=== PATIENT | male | born 2005 | race Caucasian/White ===

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

== ENCOUNTER 2024-08-29 17:21 | Emergency (ER) | payer BC ==
--- NOTE | 2024-08-29 18:10 | ED ---
Animal Bite HPI - General Chief Complaint: Animal Bite Stated Complaint: dog bites all over body Time Seen by Provider: 08/29/24 17:46 Source: patient, RN notes reviewed Mode of arrival: ambulatory Limitations: no limitations - History of Present Illness Initial Comments: This is a 18-year-old male with no significant medical history presenting to emergency department chief complaint of a animal attack. States that he was outside running approximately 2 miles from his friend's house when he was attacked by approximately 4-5 dogs resulting in multiple scratches and bites over his neck, bilateral upper and lower extremities and buttocks. Last tetanus vaccination within the last 5 years. No other acute complaints at this time. MD Complaint: animal bite, animal-related injury Location: face, neck, chest, buttocks Left: Arm, Forearm, Hand, Thigh, Leg, Right: Arm, Forearm, Hand, Thigh, Leg Animal: dog Description: immunizations unknown Mechanism: bite, scratch Context: unprovoked - Related Data Patient Tetanus UTD: Yes Previous Rx's Medication Instructions Recorded Amoxic-Pot Clav 875-125Mg 1 tab PO Q12HR #19 tab 08/29/24 [Augmentin 875-125] Allergies Allergy/AdvReac Type Severity Reaction Status Date / Time No Known Allergies Allergy Verified 11/30/16 21:07 Review of Systems ROS Statement: Those systems with pertinent positive or pertinent negative responses have been documented in the HPI. ROS Other: All systems not noted in ROS Statement are negative. Past Medical History Past Medical History: No Reported History History of Any Multi-Drug Resistant Organisms: None Reported Past Surgical History: No Surgical Hx Reported Past Psychological History: No Psychological Hx Reported Smoking Status: Never smoker Past Alcohol Use History: None Reported Past Drug Use History: None Reported General Exam Limitations: no limitations General appearance: alert, in no apparent distress Eye exam: Present: normal appearance, PERRL, EOMI. Absent: scleral icterus, conjunctival injection, periorbital swelling Neck exam: Present: normal inspection. Absent: tenderness, meningismus, lymphadenopathy Respiratory exam: Present: normal lung sounds bilaterally. Absent: respiratory distress, wheezes, rales, rhonchi, stridor Cardiovascular Exam: Present: regular rate, normal rhythm, normal heart sounds. Absent: systolic murmur, diastolic murmur, rubs, gallop, clicks GI/Abdominal exam: Present: soft, normal bowel sounds. Absent: distended, tenderness, guarding, rebound, rigid Extremities exam: Present: normal inspection, full ROM, normal capillary refill. Absent: tenderness, pedal edema, joint swelling, calf tenderness Back exam: Present: normal inspection Expanded Type of lesion: Present: bite/sting Distribution of rash: neck, chest, RUE, LUE, RLE, LLE Course Vital Signs 08/29/24 08/29/24 17:37 20:06 Temperature 98.1 F 98.4 F Pulse Rate 89 68 Respiratory 20 16 Rate Blood Pressure 144/91 128/72 O2 Sat by Pulse 100 97 Oximetry Medical Decision Making - Medical Decision Making Was pt. sent in by a medical professional or institution (, [facility], ANESTHETIC ASSISTANT, urgent care, hospital, or skilled nursing...) When possible be specific @ -No Did you speak to anyone other than the patient for history (EMS, parent, family, police, friend...)? What history was obtained from this source @ -No Did you review nursing and triage notes (agree or disagree)? Why? @ -I reviewed and agree with nursing and triage notes Were old charts reviewed (outside hosp., previous admission, EMS record, old EKG, old radiological studies, urgent care reports/EKG's, skilled nursing records)? Report findings @ -No old charts were reviewed Differential Diagnosis (chest pain, altered mental status, abdominal pain women, abdominal pain men, vaginal bleeding, weakness, fever, dyspnea, syncope, headache, dizziness, GI bleed, back pain, seizure, CVA, palpatations, mental health, musculoskeletal)? @ -Animal bite, puncture wound, laceration, this is not meant to be an all- inclusive list EKG interpreted by me (3pts min.). @ -none X-rays interpreted by me (1pt min.). @ -None done CT interpreted by me (1pt min.). @ -None done U/S interpreted by me (1pt. min.). @ -None done What testing was considered but not performed or refused? (CT, X-rays, U/S, labs)? Why? @ -None What meds were considered but not given or refused? Why? @ -None Did you discuss the management of the patient with other professionals (professionals i.e. [facility] Harp, ANESTHETIC ASSISTANT, lab, RT, psych nurse, director social welfare, tier truck driver, teacher, public affairs officer, pillowcase maker)? Give summary @ -No Was smoking cessation discussed for >3mins.? @ -No Was critical care preformed (if so, how long)? @ -No Were there social determinants of health that impacted care today? How? (Homelessness, low income, unemployed, alcoholism, drug addiction, transportation, low edu. Level, literacy, decrease access to med. care, [place] [facility], rehab)? @ -No Was there de-escalation of care discussed even if they declined (Discuss DNR or withdrawal of care, Hospice)? DNR status @ -No What co-morbidities impacted this encounter? (DM, HTN, Smoking, COPD, CAD, Cancer, CVA, ARF, Chemo, Hep., AIDS, mental health diagnosis, sleep apnea, morbid obesity)? @ -None Was patient admitted / discharged? Hospital course, mention meds given and route, prescriptions, significant lab abnormalities, going to OR and other pertinent info. @ -Discharge. 18-year-old male presenting with animal attack. Is noted to have multiple punctures and scratch wounds located over his right neck, right face, bilateral upper extremities/hands, bilateral lower posterior thighs and bilateral buttocks. Areas of injury do not require suture repair. Areas were cleansed with Betadine solution as patient is provided with Betadine solution to take home with him. Patient has elected to undergo rabies vaccination series and is provided with vaccine prior to discharge. He is up-to-date on his tetanus vaccine. Provided with initial dose of Augmentin and Tylenol for pain. Case discussed with Dr. Bain Undiagnosed new problem with uncertain prognosis? @ -No Drug Therapy requiring intensive monitoring for toxicity (Heparin, Nitro, Insulin, Cardizem)? @ -No Were any procedures done? @ -No Diagnosis/symptom? @ -animal bites, dog attack Acute, or Chronic, or Acute on Chronic? @ -acute Uncomplicated (without systemic symptoms) or Complicated (systemic symptoms)? @ -uncomplicated Side effects of treatment? @ -No Exacerbation, Progression, or Severe Exacerbation? @ -No Poses a threat to life or bodily function? How? (Chest pain, USA, VT, pneumonia, PE, COPD, DKA, ARF, appy, cholecystitis, CVA, Diverticulitis, Homicidal, Suic idal, threat to staff... and all critical care pts) @ -No Disposition Clinical Impression: Dog bite Disposition: HOME SELF-CARE Condition: Good Instructions (If sedation given, give patient instructions): Rabies Vaccine (By injection), Animal Bite (ED) Additional Instructions: Please return to the Emergency Department if symptoms worsen or any other concerns. Continue to keep area clean and dry. Complete full course of antibiotics as prescribed. Monitor bites for signs of infection such as increasing redness, warmth, swelling, red streaking and report back to the emergency department. Return for rabies vaccination series on days 3, 7, and 14 as described on your prescription. Prescriptions: Amoxic-Pot Clav 875-125Mg [Augmentin 875-125] 1 tab PO Q12HR #19 tab Is patient prescribed a controlled substance at d/c from ED?: No Referrals: None,Stated [Primary Care Provider] - 1-2 days Time of Disposition: 18:40
[2024-08-29] MEDS: ACETAMINOPHEN TAB 500 MG TAB PO STA (18:12)
[2024-08-29] MEDS: AMOXIC-POT CLAV 875-125MG 1 EACH TAB PO STA (18:12)
[2024-08-29] MEDS: RABIES VACCINE (PCEC) 2.5 UNIT KIT IM ONE (18:25)
[2024-08-29] MEDS: RABIES IMM GLOB 300 UNIT/2 ML VIAL IM ONE (18:31)
[2024-08-29 20:07] VITALS: BP 128/72; PULSE 68; RESP 16; TEMP 98.4
== END 2024-08-29 20:06 | disposition home or self-care (01) ==
LOC: EC 17:21
DX: S11.95XA Open bite of unspecified part of neck, initial encounter (principal); S21.159A Open bite of unspecified front wall of thorax without penetration into thoracic cavity, initial encounter; S41.152A Open bite of left upper arm, initial encounter; S41.151A Open bite of right upper arm, initial encounter; S71.152A Open bite, left thigh, initial encounter; S71.151A Open bite, right thigh, initial encounter; S31.825A Open bite of left buttock, initial encounter; S31.815A Open bite of right buttock, initial encounter; Z23 Encounter for immunization; W54.0XXA Bitten by dog, initial encounter; Y93.02 Activity, running
CPT/HCPCS: 90377; 90471; 90472; 90675; 96372; 99283

== ENCOUNTER → 2024-09-12 | Outpatient (CLI) | payer BC ==
[~2024-09-12] MED LIST: RABIES VACCINE (PCEC) 2.5 UNIT KIT IM ONE
== END | disposition home or self-care (01) ==
LOC: LABMAIN 13:33
PROVIDERS: ATTEND Physician Assistant
DX: T14.8XXA Other injury of unspecified body region, initial encounter (principal); W54.0XXA Bitten by dog, initial encounter
CPT/HCPCS: 90675